=== PATIENT | female | born 1995 | race African-American/Black ===

== ENCOUNTER 2017-02-16 19:27 | Emergency (ER) | payer OTHER ==
[~2017-02-16 19:27] MED LIST: CITRATE OF MAG300 ML PO; DOCUSATE SODIU100 MG PO; GLUCOMETER; GLUCOPHAGE500 M1 PO; LAXATIVE SUPPO1 EACH PR; POLYETHYLENE MC; [UNRECOGNIZED DRUG - OTHER]; [UNRECOGNIZED DRUG - REMARK]
[2017-02-16 20:33] LABS: URINE SOURCE CLEAN CATCH
[2017-02-16 20:37] LABS: BASOPHIL% 1.5 % (0-2.5); HEMATOCRIT 46.4 % (35.0-45.0); HEMOGLOBIN 15.2 gm/dL (12.0-16.0); LYMPHOCYTE# 0.5 X10e3 (1.0-3.5); LYMPHOCYTE% 19.5 % (17.0-45.0); MEAN CELL VOLUME 77.2 FL (83-96); MEAN CORPUSCULAR HEMOGLOBIN 25.2 PG (28-34); MEAN CORPUSCULAR HGB CONC 32.7 g/dL (30-36); MEAN PLATELET VOLUME 9.7 FL (6.5-11.5); MONOCYTE# 0.3 X10e3 (0-1.0); MONOCYTE% 13.9 % (3.0-12.0); NEUTROPHIL# 1.6 X10e3 (1.5-7.1); NEUTROPHIL% 65.1 % (40-75); PLATELET COUNT 138 X10e3 (140-420); RED BLOOD COUNT 6.02 X10e (3.90-5.30); WHITE BLOOD COUNT 2.5 X10e3 (4.0-10.5)
[2017-02-16 20:37] LABS: MICRO INDICATED? YES; URINE APPEARANCE CLEAR; URINE BILIRUBIN NEG (NEG); URINE BLOOD 2+ (NEG); URINE COLOR YELLOW; URINE GLUCOSE NEG (NORM); URINE KETONE NEG (NEG); URINE LEUKOCYTE ESTERASE NEG (NEG); URINE NITRATE NEG (NEG); URINE PROTEIN TRACE (NEG); URINE UROBILINOGEN 0.2 MG/DL (NORM)
[2017-02-16 20:38] LABS: DIFF IND YES
[2017-02-16 20:44] LABS: CULTURE INDICATED? NO; URINE BACTERIA NEG (NEG); URINE SQUAMOUS EPITHELIAL CELL OCCAS /[HPF]
[2017-02-16 20:55] LABS: ALBUMIN SERUM 4.4 g/dL (3.5-5.0); BILIRUBIN, DIRECT 0.1 mg/dL (0.0-0.2); BILIRUBIN,INDIRECT 0.5 mg/dL (0.0-0.9); BILIRUBIN,TOTAL 0.6 mg/dL (0.2-2.0); BUN/CREATININE RATIO 12.22; CALCIUM SERUM 8.5 mg/dL (8.4-10.2); CREATININE SERUM 0.9 mg/dL (0.6-1.4); GLOM FILT RATE Estimated 105.3 mL/min (>60); POTASSIUM 3.2 mmol/L (3.5-5.1); PROTEIN TOTAL SERUM 7.9 g/dL (6.0-8.3)
[2017-02-16 21:03] LABS: PLATELET ESTIMATE NORMAL (NORMAL)
[2017-02-16 21:04] LABS: ANISOCYTOSIS SL; MICROCYTOSIS SL
[2017-02-16 21:34] LABS: INFLUENZA A NEG (NEG); INFLUENZA B NEG (NEG)
[2017-04-06] MEDS ORDERED: ZYRTEC10 M2 PO (02:35)
[2017-04-06] MEDS ORDERED: BC IMPLANT (02:36)
[2017-04-06] MEDS ORDERED: FLONASE ALLERG9.9 ML (02:36)
[2017-04-06] MEDS ORDERED: METFORMIN HCL500 M1 PO (16:34)
== END 2017-02-16 22:05 | disposition home or self-care (01) ==
LOC: SED 19:27
PROVIDERS: Emergency Medicine
DX: B34.9 Viral infection, unspecified (principal); E11.9 Type 2 diabetes mellitus without complications
CPT/HCPCS: 36415; 80048; 80076; 81003; 83605; 83690; 84703; 85025; 86308; 87040; 87804; 96360; 99283

== ENCOUNTER → 2017-04-05 | Day surgery (SDC) | payer OTHER ==
[~2017-04-05] MED LIST changes: +BC IMPLANT; +FLONASE ALLERG9.9 ML; +METFORMIN HCL500 M1 PO; +ZYRTEC10 M2 PO
--- NOTE | ~2017-04-05 | OR ---
Unit #: [id number] #: [id number] Patient: DANNY WELLS [id number] [address] [address] [id number] O MR#: [id number] NAME: DANYN WELLS ROOM: Date of Procedure: 04/05/2017 Admission Date: 04/05/2017 Surgeon: Marko Aguilera M.D. : 1995 Attending Physician: Marko Aguilera M.D. Primary Care Physician: Kin Garcias M.D. OPERATIVE REPORT PROCEDURE PERFORMED Colonoscopy aborted. INDICATIONS FOR PROCEDURE The patient with family history of colon cancer, her aunt 23 of colon cancer. She has blood in the stool, chronic constipation, and abdominal pain. MEDICATIONS Monitored anesthesia. POSTOPERATIVE FINDINGS Hard stool in the rectum, un-prepped colon. Colonoscopy was aborted. PLAN Repeat colonoscopy after extended prep. DESCRIPTION OF PROCEDURE The patient was brought in the endoscopy room. Monitor anesthesia was started. Scope was lubricated, passed up the rectum, and gently pulled out because of the presence of the hard stool. Dictated by... Hao Meadows/yen TD: 04/05/2017 13:09 JOB #: [id number] OPERATIVE REPORT Page 1 of 1 X Marko Aguilera MD X PROCEDURE OPERATIVE NOTE
== END | disposition home or self-care (01) ==
LOC: COPS 11-05 14:30
DX: K59.09 Other constipation (principal); K92.1 Melena; E11.9 Type 2 diabetes mellitus without complications; Z80.0 Family history of malignant neoplasm of digestive organs; Z98.818 Other dental procedure status; Z98.890 Other specified postprocedural states; Z79.84 Long term (current) use of oral hypoglycemic drugs; Z79.899 Other long term (current) drug therapy
CPT/HCPCS: 82947; 84703

== ENCOUNTER → 2017-04-06 | Day surgery (SDC) | payer OTHER ==
--- NOTE | ~2017-04-06 | OR ---
Unit #: [id number] #: [id number] Patient: DANNY WELLS [id number] [address] [address] [id number] O MR#: [id number] NAME: DANNY WELLS ROOM: Date of Procedure: 04/06/2017 Admission Date: 04/06/2017 Surgeon: Marko Aguilera M.D. : 1995 Attending Physician: Marko Aguilera M.D. Primary Care Physician: Kin Garcias M.D. OPERATIVE REPORT JOB NOTE: CC: PRIMARY CARE PHYSICIAN PROCEDURE PERFORMED Colonoscopy with biopsy. INDICATIONS FOR PROCEDURE The patient with chronic abdominal pain, blood in the stool, constipation, and also history of colon cancer. MEDICATIONS Monitored anesthesia. POSTOPERATIVE FINDINGS 1. Mild proctitis. Biopsies taken. 2. Rest of the colon exam to cecum was normal. 3. Terminal ileum was normal. 4. Mild internal hemorrhoids. PLAN Follow up with pathology report. DESCRIPTION OF PROCEDURE The patient was explained of the procedure, risks, and benefits along with the risks and benefits of anesthesia. She was brought to the endoscopy room. Propofol anesthesia was given. Rectal exam was done, which was normal. Colonoscope was lubricated, passed up the rectum, advanced under direct vision all the way to the cecum. Cecum was identified by ileocecal valve and appendiceal orifice. I then started to pull the scope out carefully looking. Mild proctitis noted. Biopsies taken. Gently, I pulled the scope out of the patient's mouth. She tolerated it well. No major complications were seen. Dictated by... Hao Meadows/yen TD: 04/21/2017 08:53 JOB #: [id number] Unit #: [id number] #: [id number] Patient: DANNY WELLS OPERATIVE REPORT Page 1 of 1 X Marko Aguilera MD PROCEDURE OPERATIVE NOTE
== END | disposition home or self-care (01) ==
LOC: COPS 06:07
DX: K62.89 Other specified diseases of anus and rectum (principal); K64.8 Other hemorrhoids; Z85.038 Personal history of other malignant neoplasm of large intestine; K59.00 Constipation, unspecified; R10.9 Unspecified abdominal pain; E11.9 Type 2 diabetes mellitus without complications; Z79.84 Long term (current) use of oral hypoglycemic drugs; Z79.899 Other long term (current) drug therapy; J30.2 Other seasonal allergic rhinitis; Z91.040 Latex allergy status
CPT/HCPCS: 82947; 84703; 88305; J2250